=== PATIENT | male | born 1995 | race Caucasian/White ===

== ENCOUNTER → 2016-05-17 | Outpatient (CLI) | payer OTHER, BC ==
[~2016-05-17] MED LIST: FLUO20CA35 PO; FLUT0.15 NAE; OLOP0.1S2 OPB; SULF800T23 PO
--- NOTE | 2016-05-17 10:44 | DIAGNOSTIC IMAGING REPORT ---
RIGHT TIBIA/FIBULA 2 VIEWS ROUTINE CLINICAL HISTORY: Right tibial pain COMPARISON: None. DISCUSSION: No fractures or dislocations are visualized. There are no areas of periostitis. There is no evidence for soft tissue swelling. IMPRESSION: No fractures identified on conventional radiographic imaging Electronically signed by: Jesus Zapata M.D. 05/17/2016 10:43 AM Dictated Date/Time: 05/17/2016 10:42 AM
--- NOTE | 2016-05-17 10:44 | DIAGNOSTIC IMAGING REPORT ---
LEFT TIBIA/FIBULA 2 VIEWS ROUTINE CLINICAL HISTORY: AMAYA PAIN LEFT pain COMPARISON: None. DISCUSSION: The bones and joint spaces appear intact. There is no evidence of fracture, dislocation or bony disease. There is no evidence for soft tissue swelling. IMPRESSION: Negative study. Electronically signed by: Iker Matthew M.D. 05/17/2016 10:43 AM Dictated Date/Time: 05/17/2016 10:43 AM
== END | disposition home or self-care (01) ==
LOC: C.RADPV 10:10
PROVIDERS: ATTEND Family Medicine
DX: M79.661 Pain in right lower leg (principal)